=== PATIENT | female | born 1940 | race Caucasian/White ===

== ENCOUNTER 2019-03-09 22:08 | Inpatient (IN) | payer MEDICARE ==
[~2019-03-09] VITALS: Ht 162.6 cm; Wt 81.2 kg
[2019-03-09 22:31] LABS: *BILIRUBIN,URIN NEGATIVE (NEGATIVE); *BLOOD, URINE NEGATIVE (NEGATIVE); *CLARITY,URINE CLEAR (CLEAR); *COLOR,URINE LIGHT YELLOW (YELLOW); *KETONES,URINE NEGATIVE (NEGATIVE); *UROBILINOGEN,URINE 0.2 E.U./dl (NORMAL); LEUKOCYTE ESTERASE ,URINE NEGATIVE (NEGATIVE); NITRITE, URINE NEGATIVE (NEGATIVE); UGLUCOSE NEGATIVE (NEGATIVE)
[2019-03-09 22:34] LABS: BASOPHILS # (AUTO) 0.2 K/uL (0.0-8.0); BASOPHILS % (AUTO) 1.3 % (0.0-2.0); EOSINOPHILS # (AUTO) 0.1 K/uL (0.0-0.7); EOSINOPHILS % (AUTO) 0.7 % (0.0-7.0); HEMATOCRIT 35.8 % (31.2-41.9); HEMOGLOBIN 11.5 g/dL (10.9-14.3); LYMPHOCYTES % (AUTO) 22.5 % (20.5-51.5); MEAN CORPUSCULAR HEMOGLOBIN 28.6 uug (24.7-32.8); MEAN CORPUSCULAR HGB CONC 32 g/dL (32.3-35.6); MONOCYTES # (AUTO) 0.6 K/uL (2.0-10.0); MONOCYTES % (AUTO) 4.7 % (0.0-11.0); NEUTROPHILS # (AUTO) 9.5 K/uL (1.8-8.9); NEUTROPHILS % (AUTO) 70.8 % (38.5-71.5); PLATELET COUNT (AUTO) 248 K/uL (179-408); RED BLOOD CELL COUNT(AUTO) 4.02 MIL/uL (3.63-4.92); WHITE BLOOD COUNT (AUTO) 13.4 K/uL (3.8-11.8)
[2019-03-09 22:41] LABS: *AMPHETAMINE, URINE NEGATIVE (NEGATIVE); *BARBITURATE, URINE NEGATIVE (NEGATIVE); *CANNABINOID, URINE NEGATIVE (NEGATIVE); *COCCAINE, URINE NEGATIVE (NEGATIVE); *OPIATE, URINE POSITIVE (NEGATIVE); *PHENCYCLIDINE SCREEN,URINE NEGATIVE (NEGATIVE)
[2019-03-09 22:43] LABS: ALANINE AMINOTRANSFERASE 28 U/L (14-59); ALKALINE PHOSPHATASE 70 U/L (50-136); ASPARTATE AMINOTRANSFERASE 25 U/L (15-37); BILIRUBIN,DIRECT 0.3 mg/dL (0.0-0.2); BILIRUBIN,TOTAL 0.8 mg/dL (0.2-1.0); CARBON DIOXIDE 28 mmol/L (21-32); CHLORIDE 101 mmol/L (98-107); CREATININE 1.1 mg/dL (0.6-1.3); GLUCOSE 129 mg/dL (74-106); POTASSIUM 3.8 mmol/L (3.5-5.1); TOTAL PROTEIN, SERUM 6.9 g/dL (6.4-8.2); UREA NITROGEN, BLOOD 11 mg/dL (7-18)
[2019-03-09 22:44] LABS: ACETAMINOPHEN < 2.0 ug/mL (10-30)
[2019-03-09 22:46] LABS: ETHANOL 4 MG/DL (0-0)
[2019-03-09] MEDS ORDERED: OXYCOTIN PO (23:03)
[2019-03-09] MEDS ORDERED: LISI40TA4 PO (23:03)
[2019-03-09] MEDS ORDERED: SERT100T12 PO (23:03)
[2019-03-09] MEDS ORDERED: ALBU8.5H8 IH (23:03)
[2019-03-09] MEDS ORDERED: METF-440 PO (23:03)
[2019-03-09] MEDS ORDERED: HYDR-3326 PO (23:03)
[2019-03-09] MEDS ORDERED: DIAZ5TAB4 PO (23:03)
[2019-03-09] MEDS ORDERED: PANT40TA4 PO (23:03)
[2019-03-09] MEDS ORDERED: LIOT5TAB8 PO (23:03)
[2019-03-09] MEDS ORDERED: ESTR5VIA IM (23:03)
[2019-03-09] MEDS ORDERED: ATEN50TA PO (23:03)
[2019-03-09] MEDS ORDERED: LEVO100T PO (23:03)
[2019-03-10 03:00] VITALS: BP 152/57
[2019-03-10] MEDS ORDERED: MAGNESIUM HYDROXIDE 30 ML LIQUID UDC PO PRN (03:00)
[2019-03-10] MEDS ORDERED: LORAZEPAM 0.5 MG TABLET PO PRN (03:00)
[2019-03-10] MEDS ORDERED: MAG HYDROX/AL HYDROX/SIMETH 30 ML LIQUID UDC PO PRN (03:00)
[2019-03-10] MEDS: ACETAMINOPHEN 325 MG TABLET PO PRN ×2 (05:44→17:05)
[2019-03-10 07:30] VITALS: BP 161/58
[2019-03-10] MEDS ORDERED: ALBUTEROL SULFATE 8 GM HFA.AER.AD IH PRN (08:00)
[2019-03-10] MEDS ORDERED: Medication Not On Formulary EA (Lisinopril 40 MG) PO SCH (09:00)
[2019-03-10] MEDS ORDERED: ALBUTEROL SULFATE 2.5 MG/3 ML NEBU NEB PRN (09:15)
[2019-03-10] MEDS: LEVOTHYROXINE SODIUM 100 MCG TABLET PO SCH (10:50)
[2019-03-10] MEDS: ATENOLOL 50 MG TABLET PO SCH ×2 (10:50→20:28)
[2019-03-10] MEDS: LISINOPRIL 20 MG TABLET PO SCH ×2 (10:51→20:28)
[2019-03-10] MEDS: LIOTHYRONINE SODIUM 5 MCG TABLET PO SCH (10:51)
[2019-03-10] MEDS: METFORMIN HCL 500 MG TABLET PO SCH ×2 (10:53→17:05)
[2019-03-10] MEDS: PANTOPRAZOLE SODIUM 40 MG TABLET.DR PO SCH ×2 (10:53→17:05)
[2019-03-10] MEDS: BLOOD SUGAR DIAGNOSTIC 1 EACH STRIP VI SCH ×3 (12:19→20:25)
[2019-03-10 16:00] VITALS: BP 141/60
[2019-03-10 19:53] VITALS: BP 149/56
[2019-03-10 20:25] VITALS: BP 146/62
[2019-03-10] MEDS: TRAZODONE 50 MG TABLET PO SCH (20:28)
[2019-03-11] MEDS: HYDROCODONE/APAP 5-325MG TABLET PO PRN ×2 (04:00→20:39)
[2019-03-11] MEDS: LIOTHYRONINE SODIUM 5 MCG TABLET PO SCH (06:06)
[2019-03-11] MEDS: LEVOTHYROXINE SODIUM 100 MCG TABLET PO SCH (06:09)
[2019-03-11] MEDS: BLOOD SUGAR DIAGNOSTIC 1 EACH STRIP VI SCH (06:26)
[2019-03-11] MEDS: PANTOPRAZOLE SODIUM 40 MG TABLET.DR PO SCH ×2 (06:35→16:25)
[2019-03-11 07:30] VITALS: BP 145/91
[2019-03-11 08:15] LABS: BASOPHILS # (AUTO) 0.1 K/uL (0.0-8.0); BASOPHILS % (AUTO) 0.9 % (0.0-2.0); EOSINOPHILS # (AUTO) 0.1 K/uL (0.0-0.7); EOSINOPHILS % (AUTO) 1.5 % (0.0-7.0); HEMATOCRIT 30.2 % (31.2-41.9); HEMOGLOBIN 9.9 g/dL (10.9-14.3); LYMPHOCYTES # (AUTO) 1.7 K/uL (20.0-40.0); LYMPHOCYTES % (AUTO) 22.6 % (20.5-51.5); MEAN CORPUSCULAR HEMOGLOBIN 28.9 uug (24.7-32.8); MEAN CORPUSCULAR HGB CONC 33 g/dL (32.3-35.6); MEAN CORPUSCULAR VOLUME 88.6 fL (75.5-95.3); MONOCYTES # (AUTO) 0.5 K/uL (2.0-10.0); MONOCYTES % (AUTO) 6.5 % (0.0-11.0); NEUTROPHILS % (AUTO) 68.5 % (38.5-71.5); PLATELET COUNT (AUTO) 150 K/uL (179-408); RED BLOOD CELL COUNT(AUTO) 3.41 MIL/uL (3.63-4.92); WHITE BLOOD COUNT (AUTO) 7.4 K/uL (3.8-11.8)
[2019-03-11] MEDS: METFORMIN HCL 500 MG TABLET PO SCH ×2 (08:33→18:11)
[2019-03-11] MEDS: ATENOLOL 50 MG TABLET PO SCH ×2 (08:33→20:35)
[2019-03-11] MEDS: LISINOPRIL 20 MG TABLET PO SCH ×2 (08:34→20:35)
[2019-03-11 09:26] LABS: THYROID STIMULATING HORMONE 0.765 mIU/mL (0.358-3.740)
[2019-03-11 17:38] VITALS: BP 142/86
[2019-03-11 20:27] VITALS: BP 158/58
[2019-03-11] MEDS: TRAZODONE 50 MG TABLET PO SCH (20:35)
[2019-03-12] MEDS: TEMAZEPAM 7.5 MG CAPSULE PO PRN ×2 (00:10→23:53)
[2019-03-12] MEDS: LIOTHYRONINE SODIUM 5 MCG TABLET PO SCH (06:05)
[2019-03-12] MEDS: LEVOTHYROXINE SODIUM 100 MCG TABLET PO SCH (06:05)
[2019-03-12 06:10] VITALS: BP 152/63
[2019-03-12] MEDS: PANTOPRAZOLE SODIUM 40 MG TABLET.DR PO SCH ×2 (06:35→16:51)
[2019-03-12 08:39] VITALS: BP 142/52
[2019-03-12] MEDS: METFORMIN HCL 500 MG TABLET PO SCH ×2 (08:43→17:35)
[2019-03-12] MEDS: ATENOLOL 50 MG TABLET PO SCH ×2 (08:43→20:33)
[2019-03-12] MEDS: LISINOPRIL 20 MG TABLET PO SCH ×2 (08:44→20:34)
[2019-03-12 11:13] VITALS: BP 167/53
[2019-03-12 15:21] VITALS: BP 158/86
[2019-03-12 19:54] VITALS: BP 169/72
[2019-03-12] MEDS: TRAZODONE 50 MG TABLET PO SCH (20:33)
[2019-03-12] MEDS: HYDROCODONE/APAP 5-325MG TABLET PO PRN (20:40)
[2019-03-12 21:00] VITALS: BP 140/59
[2019-03-13] MEDS: HYDROCODONE/APAP 5-325MG TABLET PO PRN (02:15)
[2019-03-13 05:15] VITALS: BP 133/53
[2019-03-13] MEDS: PANTOPRAZOLE SODIUM 40 MG TABLET.DR PO SCH ×2 (06:32→17:22)
[2019-03-13] MEDS: LIOTHYRONINE SODIUM 5 MCG TABLET PO SCH (06:32)
[2019-03-13] MEDS: LEVOTHYROXINE SODIUM 100 MCG TABLET PO SCH (06:32)
[2019-03-13] MEDS: METFORMIN HCL 500 MG TABLET PO SCH ×2 (08:01→17:22)
[2019-03-13] MEDS: LISINOPRIL 20 MG TABLET PO SCH ×2 (08:03→20:37)
[2019-03-13] MEDS: ATENOLOL 50 MG TABLET PO SCH ×2 (08:04→20:37)
[2019-03-13 08:05] VITALS: BP_SYST 141; BP_DIAS 74; BP_DIAS 98
[2019-03-13 11:40] VITALS: BP 137/72
[2019-03-13 16:00] VITALS: BP 155/76
[2019-03-13 20:00] VITALS: BP 174/56
[2019-03-13] MEDS: TRAZODONE 50 MG TABLET PO SCH (20:37)
[2019-03-13 21:30] VITALS: BP 153/62
[2019-03-13] MEDS ORDERED: TRAZODONE 50 MG TABLET PO SCH (21:45)
[2019-03-13] MEDS: ACETAMINOPHEN 325 MG TABLET PO PRN (22:43)
[2019-03-14] MEDS: TEMAZEPAM 7.5 MG CAPSULE PO PRN (00:49)
[2019-03-14] MEDS: LEVOTHYROXINE SODIUM 100 MCG TABLET PO SCH (06:12)
[2019-03-14] MEDS: LIOTHYRONINE SODIUM 5 MCG TABLET PO SCH (06:12)
[2019-03-14] MEDS: PANTOPRAZOLE SODIUM 40 MG TABLET.DR PO SCH ×2 (06:34→16:53)
[2019-03-14] MEDS: METFORMIN HCL 500 MG TABLET PO SCH (09:19)
[2019-03-14] MEDS: LISINOPRIL 20 MG TABLET PO SCH (09:20)
[2019-03-14] MEDS: ATENOLOL 50 MG TABLET PO SCH (09:21)
[2019-03-14 11:14] VITALS: BP 124/79
[2019-03-14 15:42] VITALS: BP 142/64
[2019-03-14] MEDS ORDERED: TRAZODONE 100 MG TABLET PO SCH (21:00)
== END 2019-03-14 17:05 | disposition home or self-care (01) | DRG 885 ==
LOC: ER 22:08 → GPS 03-10 01:30 → MEDSURG3 03-11 16:48 → GPSOV3 03-11 17:03
PROVIDERS: ADMIT Psychiatry & Neurology Psychiatry; ATTEND Nurse Practitioner Acute Care
DX: F33.9 Major depressive disorder, recurrent, unspecified (principal); E11.65 Type 2 diabetes mellitus with hyperglycemia; E03.9 Hypothyroidism, unspecified; K21.9 Gastro-esophageal reflux disease without esophagitis; M81.0 Age-related osteoporosis without current pathological fracture; G89.4 Chronic pain syndrome; F41.9 Anxiety disorder, unspecified; D63.8 Anemia in other chronic diseases classified elsewhere; J45.909 Unspecified asthma, uncomplicated; I70.0 Atherosclerosis of aorta; I11.9 Hypertensive heart disease without heart failure; D72.829 Elevated white blood cell count, unspecified; Z79.84 Long term (current) use of oral hypoglycemic drugs; Z79.890 Hormone replacement therapy; Z79.51 Long term (current) use of inhaled steroids
CPT/HCPCS: 36415; 71045; 80307; 84443; 85025; 92526; 92610; 93005; A4663; G0480; G0480-TC